=== PATIENT | female | born 1965 | race Caucasian/White ===

== ENCOUNTER 2017-03-29 16:18 | Emergency (ER) | payer OTHER ==
[~2017-03-29 16:18] MED LIST: ATEN-102 PO; DIPH50 PO; LEXA5TAB PO; LINA290C PO; METF500 PO; POLY119S PO; PRED20 PO; RANI150 PO
== END 2017-03-29 16:52 | disposition left against medical advice (07) ==
LOC: PHED 16:18
DX: M79.606 Pain in leg, unspecified (principal); Z53.21 Procedure and treatment not carried out due to patient leaving prior to being seen by health care provider
CPT/HCPCS: 99281

== ENCOUNTER 2017-08-26 07:06 | Emergency (ER) | payer OTHER ==
[~2017-08-26] VITALS: Ht 170.2 cm; Wt 160.0 kg
[2017-08-26 07:13] VITALS: BP 169/83; PULSE 83; RESP 18; TEMP 97.6; O2SAT 98
[2017-08-26] MEDS ORDERED: VALS80TA2 PO (07:21)
[2017-08-26] MEDS ORDERED: ZANT150T2 PO (07:22)
[2017-08-26] MEDS ORDERED: LEXA5TAB PO (07:22)
[2017-08-26] MEDS ORDERED: METF500T PO (07:22)
[2017-08-26] MEDS ORDERED: oxyCODONE/ACETAMINOPHEN 5 MG/325 MG TAB PO ONE (07:30)
--- NOTE | 2017-08-26 07:37 | PD ---
HPI Chief Complaint: Fall Time Seen by Provider: 07:17 Travel History International Travel<30 days: No Contact w/Intl Traveler<30days: No Traveled to known affect area: No History of Present Illness HPI Patient is a 52-year-old female presents emergency department for evaluation of left wrist pain after a trip and fall this morning. Patient states she was leaving home when she tripped over a sprinkler head and landed on outstretched left hand. She states right-hand dominant. Denies any neck injury head injury chest abdomen or pelvis pain. Patient states the pain is moderate, in the left wrist and radiates up to the left elbow. Worsens with movement and palpation. Sharp in nature. PFSH Past Medical History Asthma: No Cancer: No Cardiovascular Problems: No COPD: No Diabetes: Yes (TYPE II) Patient Takes Glucophage: Yes Diminished Hearing: No Endocrine: No Gastrointestinal Disorders: Yes (UPPER GASTRIC PAIN; ADHESIONS REMOVED; CONSTIPATION) Genitourinary: No Hepatitis: No Hiatal Hernia: No Hypertension: Yes Immune Disorder: No Musculoskeletal: No Neurologic: No Psychiatric: Yes (ANXIETY & DEPRESSION ) Reproductive: No Respiratory: Yes (SLEEP APNEA USES CPAP) Integumentary: Yes (CELLULITIS RLE) Thyroid Disease: No ?: Not Menopausal: Yes : 1 Para: 1 Ovarian Cysts: Yes Tubal Ligation: Yes Past Surgical History Abdominal Surgery: Yes (LAP CHOLECY; LAP BAND 2007; LAP ADHESION REPAIR 2014) AICD: No Body Medical Devices: LAP BAND Cardiac Surgery: No Section: Yes Cholecystectomy: Yes Ear Surgery: No Endocrine Surgery: No Eye Surgery: No Genitourinary Surgery: No Gynecologic Surgery: Yes (PARTIAL HYSTERECTOMY; C SECTION ) Hysterectomy: Yes Joint Replacement: No Oral Surgery: Yes (WISDOM TEETH EXTRACTED) Pacemaker: No Thoracic Surgery: No Tonsillectomy: Yes Other Surgery: Yes (LAP BAND) Social History Alcohol Use: No Tobacco Use: No (QUIT 2005) Substance Use: No Allergies-Medications (Allergen,Severity, Reaction): Coded Allergies: amoxicillin (Unverified Allergy, Severe, Swelling, 08/26/17) needing epi clavulanic acid (Unverified Allergy, Severe, Swelling, 08/26/17) needing epi adhesive (Unverified Allergy, Intermediate, 08/26/17) RASH AT POINT OF CONTACT; Uncoded Allergies: DIET PILLS (Allergy, Intermediate, RASH, 08/26/17) Reported Meds & Prescriptions Reported Meds & Active Scripts Active [place] (Hydrocodone-Acetaminophen) 5-325 mg Tab 1 Tab PO Q6H PRN Reported Zantac (Ranitidine HCl) 150 Mg Tab 150 Mg PO DAILY Metformin (Metformin HCl) 500 Mg Tab 500 Mg PO BIDPC Lexapro (Escitalopram Oxalate) 5 Mg Tab 5 Mg PO DAILY Valsartan-Hydrochlorothiazide 80-12.5 Mg Tab Unknown Dose PO DAILY Review of Systems Except as stated in HPI: all other systems reviewed are Neg Physical Exam Narrative GENERAL: Well-developed, obese female in no distress. SKIN: Focused skin assessment warm/dry. HEAD: Atraumatic. Normocephalic. No scott signs no raccoons eyes EYES: Pupils equal and round. No scleral icterus. No injection or drainage. ENT: No nasal bleeding or discharge. Mucous membranes pink and moist. NECK: Trachea midline. No JVD. CARDIOVASCULAR: Regular rate and rhythm. No murmur appreciated. RESPIRATORY: No accessory muscle use. Clear to auscultation. Breath sounds equal bilaterally. GASTROINTESTINAL: Abdomen soft, non-tender, nondistended. Hepatic and splenic margins not palpable. MUSCULOSKELETAL: No obvious deformities. No clubbing. No cyanosis. No edema. There is some tenderness and minimal swelling at the left distal radius, there is no tenderness at the left elbow and has full nontender range of motion however the patient does endorse some pain throughout range of motion. Pulses motor and sensory intact distally in all 4 extremities, compartments are soft. The right upper extremities atraumatic, no midline CT or L-spine tenderness to NEUROLOGICAL: Awake and alert. No obvious cranial nerve deficits. Motor grossly within normal limits. Normal speech. PSYCHIATRIC: Appropriate mood and affect; insight and judgment normal. Data Data Last Documented VS Vital Signs Date Time Temp Pulse Resp B/P (MAP) Pulse Ox O2 Delivery O2 Flow Rate FiO2 08/26/17 08:31 16 08/26/17 07:13 97.6 83 169/83 (111) 98 Orders Orders Wrist, Complete (Odz2ome) (08/26/17 ) Elbow, Complete (4 Vws) (08/26/17 ) Oxycodone-Acetamin 5-325 Mg (Percocet (08/26/17 07:30) ^ Splint (08/26/17 07:46) Splint Or Brace Apply/Monitor (08/26/17 08:09) Fiberglass Sugartong Sp Ad Arm (08/26/17 ) Fiberglass Splint Forearm Adul (08/26/17 ) Sling Cradle Arm (08/26/17 ) MDM Medical Decision Making Medical Screen Exam Complete: Yes Emergency Medical Condition: Yes Differential Diagnosis Wrist contusion, wrist fracture, elbow strain, elbow fracture. Head injury excluded by [place] CT head rules, neck injury excluded by Nexus criteria Narrative Course Patient roomed in emergency department, x-ray results as follows Last 24 hours Impressions Wrist X-Ray 08/26/17 0000 Signed Impressions: Service Date/Time: Saturday, August 26, 2017 07:23 - CONCLUSION: Suspected a slightly impacted nondisplaced fracture distal radius. Bob Swanson MD Elbow X-Ray 08/26/17 0000 Signed Impressions: Service Date/Time: Saturday, August 26, 2017 07:23 - CONCLUSION: No acute fracture. Bob Swanson MD Suspected fracture noted this is consistent with the patient's physical exam findings, will be placed in a splint and instructions to follow-up with orthopedics. Pain medicine prescribed, her ring was removed on her left ring finger. This was removed by her and she has it in her possession. Discussed signs symptoms that should prompt emergent return to the ER, she stable for discharge Diagnosis Primary Impression: Distal radius fracture, left Qualified Codes: S52.572A - Other intraarticular fracture of lower end of left radius, initial encounter for closed fracture Referrals: Daquan Garrison MD Departure Forms: Tests/Procedures, Work Release Enter return to work date: Aug 29, 2017 Med/Other Pt SpecificInfo: Prescription(s) given Scripts Hydrocodone-Acetaminophen ([place]) 5-325 mg Tab 1 TAB PO Q6H Y for PAIN, #20 TAB 0 Refills Prov: Alexander Arguello MD 08/26/17 Disposition: 01 DISCHARGE HOME Condition: Stable Alexander Arguello MD Aug 26, 2017 07:37
--- NOTE | 2017-08-26 07:42 | RADRPT ---
EXAM DATE/TIME: 08/26/2017 07:23 [facility] COMPARISON: No previous studies available for comparison. INDICATIONS : Left wrist pain post fall. MEDICAL HISTORY : None. SURGICAL HISTORY : None. ENCOUNTER: Initial ACUITY: 1 day PAIN SCORE: 9/10 LOCATION: Left wrisst FINDINGS: Three view examination of the left wrist demonstrates soft tissue swelling. Minimal sclerosis distal radius suggests slightly impacted nondisplaced fracture. No dislocation. Ulna intact. Bony mineraliz ation is normal. CONCLUSION: Suspected a slightly impacted nondisplaced fracture distal radius. Bob Swanson MD on August 26, 2017 at 7:38 Board Certified Radiologist. This report was verified electronically.
--- NOTE | 2017-08-26 07:43 | RADRPT ---
EXAM DATE/TIME: 08/26/2017 07:23 [facility] COMPARISON: No previous studies available for comparison. INDICATIONS : Left elbow pain post fall MEDICAL HISTORY : None. SURGICAL HISTORY : None. ENCOUNTER: Initial ACUITY: 1 day PAIN SCORE: 9/10 LOCATION: Left elbow FINDINGS: Multiple view examination of the left elbow demonstrates no soft tissue swelling, joint effusion, or fracture. The osseous structures are in normal alignment. Bony mineralization is normal. CONCLUSION: No acute fracture. Bob Swanson MD on August 26, 2017 at 7:41 Board Certified Radiologist. This report was verified electronically.
[2017-08-26] MEDS ORDERED: NORC5TAB PO (07:47)
[2017-08-26 08:31] VITALS: RESP 16
== END 2017-08-26 08:50 | disposition home or self-care (01) ==
LOC: PHED 07:06
DX: S52.572A Other intraarticular fracture of lower end of left radius, initial encounter for closed fracture (principal); W01.0XXA Fall on same level from slipping, tripping and stumbling without subsequent striking against object, initial encounter; Z87.891 Personal history of nicotine dependence
CPT/HCPCS: 29125; 73080; 73110

== ENCOUNTER 2017-12-14 17:02 | Observation (INO) | payer OTHER ==
[2017-12-14] VITALS (7 sets, daily range): BP systolic 112–170; BP diastolic 56–97; PULSE 60–72; RESP 16–20; TEMP 96–97.7; O2SAT 95–98
[~2017-12-14] VITALS: Ht 170.2 cm; Wt 161.3 kg
[~2017-12-14 17:02] MED LIST changes: -ATEN-102 PO; -DIPH50 PO; -LINA290C PO; -METF500 PO; +METF500T PO; +NORC5TAB PO; -POLY119S PO; -PRED20 PO; -RANI150 PO; +VALS80TA2 PO; +ZANT150T2 PO
--- NOTE | 2017-12-14 17:28 | PD ---
HPI Chief Complaint: Chest pain Time Seen by Provider: 17:11 Travel History International Travel<30 days: No Contact w/Intl Traveler<30days: No Traveled to known affect area: No History of Present Illness HPI 52yo F with PMH of DM, HTN, morbid obesity presents to the ED with c/o left sided chest pain since yesterday. Pt said it is pressure like, nonradiating and constant. No exacerbating or alleviating factors. Also felt a little sob today. Pt was not feeling well 3 days ago and went to urgent care. They diagnosed here with pneumonia base on physical exam and started her on doxycycline. Pt said she has a little cough but not much and no fever. Denies any nausea, vomiting, abdominal pain, focal weakness or numbness. She had a stress test many years ago but has no warp changer and no recent work up. Said she was a former cig smoker. PFSH Past Medical History Asthma: No Cancer: No Cardiovascular Problems: No COPD: No Diabetes: Yes (TYPE II) Diminished Hearing: No Endocrine: No Gastrointestinal Disorders: Yes (UPPER GASTRIC PAIN; ADHESIONS REMOVED; CONSTIPATION) Genitourinary: No Hepatitis: No Hiatal Hernia: No Hypertension: Yes Immune Disorder: No Musculoskeletal: No Neurologic: No Psychiatric: Yes (ANXIETY & DEPRESSION ) Reproductive: No Respiratory: Yes (SLEEP APNEA USES CPAP) Integumentary: Yes (CELLULITIS RLE) Thyroid Disease: No Menopausal: Yes : 1 Para: 1 Ovarian Cysts: Yes Tubal Ligation: Yes Past Surgical History Abdominal Surgery: Yes (LAP CHOLECY; LAP BAND 2007; LAP ADHESION REPAIR 2014) AICD: No Body Medical Devices: LAP BAND Cardiac Surgery: No Section: Yes Cholecystectomy: Yes Ear Surgery: No Endocrine Surgery: No Eye Surgery: No Genitourinary Surgery: No Gynecologic Surgery: Yes (PARTIAL HYSTERECTOMY; C SECTION ) Hysterectomy: Yes Joint Replacement: No Oral Surgery: Yes (WISDOM TEETH EXTRACTED) Pacemaker: No Thoracic Surgery: No Tonsillectomy: Yes Other Surgery: Yes (LAP BAND) Social History Alcohol Use: No Tobacco Use: No (QUIT 2005) Substance Use: No Allergies-Medications (Allergen,Severity, Reaction): Coded Allergies: amoxicillin (Unverified Allergy, Severe, Swelling, 12/14/17) needing epi clavulanic acid (Unverified Allergy, Severe, Swelling, 12/14/17) needing epi adhesive (Unverified Allergy, Intermediate, 12/14/17) RASH AT POINT OF CONTACT; Penicillins (Verified Allergy, Unknown, 12/14/17) Uncoded Allergies: DIET PILLS (Allergy, Intermediate, RASH, 08/26/17) Reported Meds & Prescriptions Reported Meds & Active Scripts Active Reported Estradiol 0.05 Mg/24 Hour Patch.tdsw Medroxyprogesterone Acetate 2.5 Mg Tablet Lasix (Furosemide) 20 Mg Tab 20 Mg PO DAILY Hydrochlorothiazide 25 Mg Tab 25 Mg PO DAILY K-Tab (Potassium Chloride) 10 Meq Tab 10 Meq PO DAILY Tanzeum 4-Pack Inj (Albiglutide) 50 Mg Pfpen 50 Mg SQ Q7D Lexapro (Escitalopram Oxalate) 5 Mg Tab 20 Mg PO HS Valsartan-Hydrochlorothiazide 80-12.5 Mg Tab 160 PO DAILY Review of Systems Except as stated in HPI: all other systems reviewed are Neg Physical Exam Narrative GENERAL: 52yo F in mild distress. SKIN: Focused skin assessment warm/dry. HEAD: Atraumatic. Normocephalic. EYES: Pupils equal and round. No scleral icterus. No injection or drainage. ENT: No nasal bleeding or discharge. Mucous membranes pink and moist. NECK: Trachea midline. No JVD. CARDIOVASCULAR: Regular rate and rhythm. No murmur appreciated. RESPIRATORY: No accessory muscle use. Clear to auscultation. Breath sounds equal bilaterally. GASTROINTESTINAL: Abdomen soft, non-tender, nondistended. MUSCULOSKELETAL: No obvious deformities. No clubbing. No cyanosis. No edema. NEUROLOGICAL: Awake and alert. No obvious cranial nerve deficits. Motor grossly within normal limits. Normal speech. PSYCHIATRIC: Appropriate mood and affect; insight and judgment normal. Data Data Last Documented VS Vital Signs Date Time Temp Pulse Resp B/P (MAP) Pulse Ox O2 Delivery O2 Flow Rate FiO2 12/14/17 18:37 72 20 122/56 (78) 95 Room Air 12/14/17 17:08 97.7 Orders Orders Electrocardiogram (12/14/17 17:23) Basic Metabolic Panel (Bmp) (12/14/17 17:23) B-Type Natriuretic Peptide (12/14/17 17:23) Complete Blood Count With Diff (12/14/17 17:23) Magnesium (Mg) (12/14/17 17:23) Prothrombin Time / Inr (Pt) (12/14/17 17:23) Act Partial Throm Time (Ptt) (12/14/17 17:23) Troponin I (12/14/17 17:23) Chest, Single Ap (12/14/17 17:23) Aspirin (Aspirin) (12/14/17 17:30) Guaifen-Cod 200-20 Mg/10ml Liq (Robituss (12/14/17 18:30) Nitroglycerin Sl (Nitrostat Sl) (12/14/17 18:30) Admit Order (Ed Use Only) (12/14/17 18:37) Labs Laboratory Tests Test 12/14/17 17:38 White Blood Count 7.6 TH/MM3 Red Blood Count 4.54 MIL/MM3 Hemoglobin 13.0 GM/DL Hematocrit 38.0 % Mean Corpuscular Volume 83.6 FL Mean Corpuscular Hemoglobin 28.6 PG Mean Corpuscular Hemoglobin Concent 34.2 % Red Cell Distribution Width 13.2 % Platelet Count 217 TH/MM3 Mean Platelet Volume 8.1 FL Neutrophils (%) (Auto) 68.7 % Lymphocytes (%) (Auto) 23.1 % Monocytes (%) (Auto) 5.1 % Eosinophils (%) (Auto) 2.7 % Basophils (%) (Auto) 0.4 % Neutrophils # (Auto) 5.2 TH/MM3 Lymphocytes # (Auto) 1.7 TH/MM3 Monocytes # (Auto) 0.4 TH/MM3 Eosinophils # (Auto) 0.2 TH/MM3 Basophils # (Auto) 0.0 TH/MM3 CBC Comment DIFF FINAL Differential Comment Prothrombin Time 10.4 SEC Prothromb Time International Ratio 1.0 RATIO Activated Partial Thromboplast Time 26.1 SEC Blood Urea Nitrogen 10 MG/DL Creatinine 0.65 MG/DL Random Glucose 166 MG/DL Calcium Level 8.4 MG/DL Magnesium Level 2.1 MG/DL Sodium Level 139 MEQ/L Potassium Level 3.8 MEQ/L Chloride Level 105 MEQ/L Carbon Dioxide Level 28.6 MEQ/L Anion Gap 5 MEQ/L Estimat Glomerular Filtration Rate 96 ML/MIN Troponin I LESS THAN 0.02 NG/ML B-Type Natriuretic Peptide 28 PG/ML MDM Medical Decision Making Medical Screen Exam Complete: Yes Emergency Medical Condition: Yes Interpretation(s) EKG: NSR 60bpm. LAD. No ST segment elevation or depression. Differential Diagnosis ACS vs. pneumonia vs. influenza vs. bronchitis vs. GERD Narrative Course 52yo F with URI like symptom. Pt had negative influenza and strep at urgent care. Labs reviewed, no leukocytosis. Troponin negative. BNP normal. CXR negative. Pt given aspirin and sublingual nitro. I am concern about the chest pain since pt has multiple cardiac risk factors. Discussed with Dr. Barnard and accepted to his service for chest pain center. Diagnosis Primary Impression: Chest pain Qualified Codes: R07.9 - Chest pain, unspecified Admitting Information Admitting Physician Requests: Observation Corinne Dean DO Dec 14, 2017 17:28
[2017-12-14] MEDS ORDERED: ASPIRIN 325 MG TAB PO ONE (17:30)
[2017-12-14 17:41] LABS: AUTOMATED NEUTROPHIL # 5.2 TH/MM3 (1.8-7.7); BASOPHIL % 0.4 % (0.0-2.0); EOSINOPHIL # 0.2 TH/MM3 (0-0.4); EOSINOPHIL % 2.7 % (0.0-4.0); LYMPH % 23.1 % (9.0-44.0); LYMPHOCYTE # 1.7 TH/MM3 (1.0-4.8); MEAN CELL VOLUME 83.6 FL (80.0-100.0); MEAN CORPUSCULAR HEMOGLOBIN 28.6 PG (27.0-34.0); MEAN CORPUSCULAR HGB CONC 34.2 % (32.0-36.0); MEAN PLATELET VOLUME 8.1 FL (7.0-11.0); MONO % 5.1 % (0.0-8.0); MONOCYTE # 0.4 TH/MM3 (0-0.9); NEUT % 68.7 % (16.0-70.0); PLATELET COUNT 217 TH/MM3 (150-450); RED BLOOD COUNT 4.54 MIL/MM3 (4.00-5.30); RED CELL DISTRIBUTION WIDTH 13.2 % (11.6-17.2); WHITE BLOOD COUNT 7.6 TH/MM3 (4.0-11.0)
[2017-12-14 17:49] LABS: CHLORIDE 105 MEQ/L (98-107); SODIUM (NA) 139 MEQ/L (136-145)
[2017-12-14 17:51] LABS: CALCIUM 8.4 MG/DL (8.5-10.1)
[2017-12-14 17:52] LABS: BICARBONATE 28.6 MEQ/L (21.0-32.0); BLOOD UREA NITROGEN 10 MG/DL (7-18); GLUCOSE,RANDOM 166 MG/DL (74-106); MAGNESIUM 2.1 MG/DL (1.5-2.5)
[2017-12-14 17:55] LABS: CREATININE 0.65 MG/DL (0.50-1.00); GLOMERULAR FILTRATION RATE 96 ML/MIN (>89); PROTHROMBIN TIME - PATIENT 10.4 SEC (9.8-11.6)
[2017-12-14 18:00] LABS: TROPONIN I LESS THAN 0.02 NG/ML (0.02-0.05)
--- NOTE | 2017-12-14 18:09 | RADRPT ---
EXAM DATE/TIME: 12/14/2017 17:55 [facility] COMPARISON: No previous studies available for comparison. INDICATIONS : Short of breath, cough, chest heaviness MEDICAL HISTORY : None. SURGICAL HISTORY : None. ENCOUNTER: Initial ACUITY: 4 - 6 days PAIN SCORE: 6/10 LOCATION: Bilateral chest FINDINGS: A single view of the chest demonstrates the lungs to be symmetrically aerated without evidence of mas s, infiltrate or effusion. The cardiomediastinal contours are unremarkable. Osseous structures are intact. CONCLUSION: No evidence of acute cardiopulmonary disease. Ten Sosa MD on December 14, 2017 at 18:07 Board Certified Radiologist. This report was verified electronically.
[2017-12-14] MEDS ORDERED: K-TA10TA PO (18:16)
[2017-12-14] MEDS ORDERED: MEDR2.5T4 (18:16)
[2017-12-14] MEDS ORDERED: HYDR25TA5 PO (18:16)
[2017-12-14] MEDS ORDERED: ALBI1INJ2 SQ (18:16)
[2017-12-14] MEDS ORDERED: FURO1TAB62 PO (18:16)
[2017-12-14] MEDS ORDERED: ESTR1PAT9 (18:16)
[2017-12-14] MEDS ORDERED: NITROGLYCERIN 0.4 MG SL 25 TABS/BTL SL ONE (18:30)
[2017-12-14] MEDS ORDERED: guaiFENesin/CODEINE SYRUP 200 MG/20 MG/10 ML CUP PO ONE (18:30)
[2017-12-14] MEDS ORDERED: ONDANSETRON HCL 4 MG/2 ML VIAL IV PUSH PRN (19:00)
[2017-12-14] MEDS ORDERED: SODIUM CHLORIDE 0.9% FLUSH 10 ML FLUSH IV FLUSH PRN (19:00)
[2017-12-14] MEDS ORDERED: ESCITALOPRAM OXALATE 20 MG TAB PO SCH (21:00)
[2017-12-14 21:16] LABS: TROPONIN I LESS THAN 0.02 NG/ML (0.02-0.05)
[2017-12-14] MEDS: SODIUM CHLORIDE 0.9% FLUSH 10 ML FLUSH IV FLUSH SCH (23:05)
[2017-12-15] VITALS (8 sets, daily range): BP systolic 133–157; BP diastolic 56–112; PULSE 56–79; RESP 16–18; TEMP 95.7–98; O2SAT 94–98
[2017-12-15 00:08] LABS: TROPONIN I LESS THAN 0.02 NG/ML (0.02-0.05)
[2017-12-15] MEDS ORDERED: PNEUMOCOCCAL POLYVALENT INJ 25 MCG/0.5 ML SYR IM ONE (09:00)
[2017-12-15] MEDS ORDERED: POTASSIUM CHLORIDE 10 MEQ CONTROLLED RELEASE TAB PO SCH (09:00)
[2017-12-15] MEDS ORDERED: FUROSEMIDE 20 MG TAB PO SCH (09:00)
[2017-12-15] MEDS ORDERED: HYDROCHLOROTHIAZIDE 25 MG TAB PO SCH (09:00)
--- NOTE | 2017-12-15 09:06 | HHI.HP ---
HPI Service [facility] Primary Care Physician Twila Irving, DO Admission Diagnosis Chest pain Diagnoses: (1) Chest pain Chief Complaint: Chest pain Travel History International Travel<30 Days: No Contact w/Intl Traveler <30 Da: No Traveled to Known Affected Are: No History of Present Illness Written by Teressa Donohue, acting as scribe for Dr. Fajardo on 12/15/17 at 09:06. This is a pleasant 52-year-old female patient with a known medical history of type 2 diabetes, hypertension and obesity who presented to the ED with complaints of chest pain. Patient states that the chest pain started yesterday while at rest in her midsternal chest, characterizes pain as heavy and burning in nature and constant, denies any radiation of pain. Denies any associated nausea, vomiting, diaphoresis. Does admit to associated shortness of breath. Patient states she was evaluated at the urgent care a few days ago, diagnosed with pneumonia and placed on doxycycline. Patient does admit to nonproductive cough, denies any recent fever or chills. Patient does admit to a previous stress test in 2000, which was reportedly negative. Does not follow with a director of slot operations. Denies any current tobacco use. Review of Systems Constitutional: DENIES: Fever, Chills Respiratory: COMPLAINS OF: Cough, Shortness of breath, DENIES: Sputum production Cardiovascular: COMPLAINS OF: Chest pain, Palpitations Gastrointestinal: DENIES: Abdominal pain, Black stools, Bloody stools, Constipation, Diarrhea, Nausea, Vomiting Musculoskeletal: DENIES: Joint pain Hematologic/lymphatic: DENIES: Bruising Immunologic/allergic: DENIES: Eczema Neurologic: DENIES: Abnormal gait Psychiatric: COMPLAINS OF: Anxiety Except as stated in HPI: all other systems reviewed are Neg Past Family Social History Past Medical History Type 2 diabetes Hypertension Anxiety Depression Obesity with history of lap band Sleep apnea Past Surgical History Cholecystectomy Partial hysterectomy LAP-BAND 2007 Reported Medications Active Reported Estradiol 0.05 Mg/24 Hour Patch.tdsw Medroxyprogesterone Acetate 2.5 Mg Tablet Lasix (Furosemide) 20 Mg Tab 20 Mg PO DAILY Hydrochlorothiazide 25 Mg Tab 25 Mg PO DAILY K-Tab (Potassium Chloride) 10 Meq Tab 10 Meq PO DAILY Tanzeum 4-Pack Inj (Albiglutide) 50 Mg Pfpen 50 Mg SQ Q7D Lexapro (Escitalopram Oxalate) 5 Mg Tab 20 Mg PO HS Valsartan-Hydrochlorothiazide 80-12.5 Mg Tab 160 PO DAILY Allergies: Coded Allergies: amoxicillin (Unverified Allergy, Severe, Swelling, 12/14/17) needing epi clavulanic acid (Unverified Allergy, Severe, Swelling, 12/14/17) needing epi adhesive (Unverified Allergy, Intermediate, 12/14/17) RASH AT POINT OF CONTACT; Penicillins (Verified Allergy, Unknown, 12/14/17) Uncoded Allergies: DIET PILLS (Allergy, Intermediate, RASH, 08/26/17) Active Ordered Medications Current Medications Medications (Trade) Dose Ordered Sig/Rudy Route Start Time Stop Time Status Last Admin (NS Flush) 2 ml UNSCH PRN IV FLUSH 12/14/17 19:00 (NS Flush) 2 ml BID IV FLUSH 12/14/17 21:00 12/15/17 09:12 (Tylenol) 500 mg Q4H PRN PO 12/14/17 19:00 12/15/17 09:13 (Zofran Inj) 4 mg Q6H PRN IV PUSH 12/14/17 19:00 (Lexapro) 20 mg HS PO 12/14/17 21:00 12/14/17 23:05 (Lasix) 20 mg DAILY PO 12/15/17 09:00 12/15/17 09:14 (Hydrodiuril) 25 mg DAILY PO 12/15/17 09:00 12/15/17 09:13 (KCl) 10 meq DAILY PO 12/15/17 09:00 12/15/17 09:14 Family History Paternal medical history significant for breast cancer. Paternal medical history significant for COPD, CHF and diabetes. Social History Denies any current tobacco use. States she quit smoking over 10 years ago. Admits to social alcohol use. Denies any illicit drug use. Physical Exam Vital Signs Vital Signs Date Time Temp Pulse Resp B/P (MAP) Pulse Ox O2 Delivery O2 Flow Rate FiO2 12/15/17 04:00 96.4 72 16 151/91 (111) 96 1/28/18 00:00 95.7 56 16 134/90 (105) 97 12/14/17 23:17 60 20 12/14/17 22:45 96 21 12/14/17 22:00 65 12/14/17 21:30 96.0 64 16 146/96 (113) 98 12/14/17 21:05 60 20 135/70 (91) 97 12/14/17 19:30 97.4 60 18 112/69 (83) 96 Room Air 12/14/17 19:30 60 96 Room Air 12/14/17 18:37 72 20 122/56 (78) 95 Room Air 12/14/17 17:08 97.7 71 20 170/97 (121) 96 Physical Exam GENERAL: Well-nourished, well-developed obese patient in NAD. SKIN: Warm and dry. No rash. HEAD: Normocephalic. Atraumatic. EYES: Pupils equal and round. No scleral icterus. No injection or drainage. ENT: No nasal bleeding or discharge. Mucous membranes pink and moist. NECK: Supple. Trachea midline. CARDIOVASCULAR: Regular rate and rhythm. S1, S2 noted. No murmur appreciated. No reproducible chest pain. RESPIRATORY: No accessory muscle use. Clear to auscultation. Breath sounds equal bilaterally. GASTROINTESTINAL: Abdomen soft, non-tender, nondistended. Normoactive bowel sounds x4. MUSCULOSKELETAL: No obvious deformities. Extremities without clubbing, cyanosis , or edema. NEUROLOGICAL: Awake and alert. No obvious cranial nerve deficits. Motor grossly within normal limits. 5/5 muscle strength in bilateral upper and lower extremities. Normal speech. PSYCHIATRIC: Appropriate mood and affect; insight and judgment normal. Laboratory Laboratory Tests Test 12/14/17 17:38 12/14/17 20:45 12/14/17 23:22 White Blood Count 7.6 Red Blood Count 4.54 Hemoglobin 13.0 Hematocrit 38.0 Mean Corpuscular Volume 83.6 Mean Corpuscular Hemoglobin 28.6 Mean Corpuscular Hemoglobin Concent 34.2 Red Cell Distribution Width 13.2 Platelet Count 217 Mean Platelet Volume 8.1 Neutrophils (%) (Auto) 68.7 Lymphocytes (%) (Auto) 23.1 Monocytes (%) (Auto) 5.1 Eosinophils (%) (Auto) 2.7 Basophils (%) (Auto) 0.4 Neutrophils # (Auto) 5.2 Lymphocytes # (Auto) 1.7 Monocytes # (Auto) 0.4 Eosinophils # (Auto) 0.2 Basophils # (Auto) 0.0 CBC Comment DIFF FINAL Differential Comment Prothrombin Time 10.4 Prothromb Time International Ratio 1.0 Activated Partial Thromboplast Time 26.1 Blood Urea Nitrogen 10 Creatinine 0.65 Random Glucose 166 Calcium Level 8.4 Magnesium Level 2.1 Sodium Level 139 Potassium Level 3.8 Chloride Level 105 Carbon Dioxide Level 28.6 Anion Gap 5 Estimat Glomerular Filtration Rate 96 Troponin I LESS THAN 0.02 LESS THAN 0.02 LESS THAN 0.02 B-Type Natriuretic Peptide 28 Total Creatine Kinase 90 92 Result Diagram: 12/14/178 12/14/17 173 Imaging Last Impressions Chest X-Ray 12/14/171722 Signed Impressions: Service Date/Time: Thursday, December 14, 2017 17:55 - CONCLUSION: No evidence of acute cardiopulmonary disease. Ten Sosa MD Septic Shock Reassessment Septic shock perfusion: reassessment completed Caprini VTE Risk Assessment Caprini VTE Risk Assessment: No/Low Risk (score <= 1) Caprini Risk Assessment Model Point Value = 1 Point Value = 2 Point Value = 3 Point Value = 5 Age 41-60 Minor surgery BMI > 25 kg/m2 Swollen legs Varicose veins or History of unexplained or recurrent spontaneous Oral contraceptives or hormone replacement Sepsis (< 1 month) Serious lung disease, including pneumonia (< 1 month) Abnormal pulmonary function Acute myocardial infarction Congestive heart failure (< 1 month) History of inflammatory bowel disease Medical patient at bed rest Age 61-74 Arthroscopic surgery Major open surgery (> 45 min) Laparoscopic surgery (> 45 min) Malignancy Confined to bed (> 72 hours) Immobilizing plaster cast Central venous access Age >= 75 History of VTE Family history of VTE Factor V Leiden Prothrombin [id number] Lupus anticoagulant Anticardiolipin antibodies Elevated serum homocysteine Heparin-induced thrombocytopenia Other congenital or acquired thrombophilia Stroke (< 1 month) Elective arthroplasty Hip, pelvis, or leg fracture Acute spinal cord injury (< 1 month) Prophylaxis Regimen Total Risk Factor Score Risk Level Prophylaxis Regimen 0-1 Low Early ambulation 2 Moderate Order ONE of the following: *Sequential Compression Device (SCD) *Heparin 5000 units SQ BID 3-4 Higher Order ONE of the following medications: *Heparin 5000 units SQ TID *Enoxaparin/Lovenox 40 mg SQ daily (WT < 150 kg, CrCl > 30 mL/min) *Enoxaparin/Lovenox 30 mg SQ daily (WT < 150 kg, CrCl > 10-29 mL/min) *Enoxaparin/Lovenox 30 mg SQ BID (WT < 150 kg, CrCl > 30 mL/min) AND/OR *Sequential Compression Device (SCD) 5 or more Highest Order ONE of the following medications: *Heparin 5000 units SQ TID (Preferred with Epidurals) *Enoxaparin/Lovenox 40 mg SQ daily (WT < 150 kg, CrCl > 30 mL/min) *Enoxaparin/Lovenox 30 mg SQ daily (WT < 150 kg, CrCl > 10-29 mL/min) *Enoxaparin/Lovenox 30 mg SQ BID (WT < 150 kg, CrCl > 30 mL/min) AND *Sequential Compression Device (SCD) Assessment and Plan Problem List: (1) Chest pain ICD Code: R07.9 - Chest pain, unspecified Status: Acute Assessment and Plan This is a pleasant 52-year-old female patient with a known medical history of type 2 diabetes, hypertension and obesity who presented to the ED with complaints of chest pain. Chest pain Patient has been admitted to the chest pain center for observation. Serial EKGs and serial troponins have been ordered for ruling out ACS purposes. Serial troponins are flat. EKG reviewed showing sinus bradycardia, no arrhythmias, no ST changes to indicate ischemia. CBC and BMP reviewed, essentially unremarkable. Chest x-ray reviewed showing no evidence of acute cardiopulmonary disease. Chest pain has not resolved. Lying in bed comfortably on room air. Patient has multiple risk factors for cardiac disease including diabetes, obesity, family history and previous tobacco use. Patient will undergo a cardiac nuclear stress test to further rule out any ischemia. Further disposition treatment plan will depend on nuclear results. Continue to follow. Supportive care. Patient is stable at this time and agreeable to the pain. Hypertension, chronic: Continue home medications. BP mildly elevated. Monitor BP trends. Depression, chronic: Continue home medications. Obesity: Counseled extensively about importance of losing weight and risk of cardiac disease. DVT prophylaxis: SCDs. This note was transcribed by umer Donohue. I, Dr. Bob Fajardo personally performed the history, physical exam, and medical decision making; and confirmed the accuracy of the information in the transcribed note. Authenticated by Dr. Bob Fajardo on 12/15/17 at 09:06. Patient underwent cardiac nuclear stress test which showed focal stress-induced ischemia and hypokinesis at the apex. Spoke to on-call director of slot operations for [facility], Dr. atkinson, who was updated about patient status and stress test results and recommended long-acting nitrate and follow-up in the outpatient setting in his office. Discussed with patient and . Chest pain has not resolved. All symptoms have improved. Patient is agreeable to following up with Dr. atkinson in the outpatient setting for further monitoring of her heart. Patient is encouraged to return to the ED symptoms worsen or continue. Code Status Full code Discussed Condition With Patient, , sister Problem Qualifiers (1) Chest pain: Qualified Codes: R07.9 - Chest pain, unspecified Teressa Donohue Dec 15, 2017 09:06 Bob Fajardo MD Dec 15, 2017 09:06
[2017-12-15] MEDS: SODIUM CHLORIDE 0.9% FLUSH 10 ML FLUSH IV FLUSH SCH (09:12)
[2017-12-15] MEDS: ACETAMINOPHEN 500 MG CPLT PO PRN ×2 (09:13→17:34)
--- NOTE | 2017-12-15 12:14 | EKG ---
Date Performed: 12/14/2017 Time Performed: 17:33:15 PTAGE: 52 years EKG: Sinus rhythm NORMAL ECG PREVIOUS TRACING : 10/01/2015 10.16 Since the prior tracing, there has been no significant mishra DOCTOR: Andres Adams Interpretating Date/Time 12/15/2017 12:13:02
--- NOTE | 2017-12-15 12:14 | EKG ---
Date Performed: 12/14/2017 Time Performed: 21:45:26 PTAGE: 52 years EKG: Sinus rhythm NORMAL ECG PREVIOUS TRACING : 12/14/2017 17.33 Since the prior tracing, there has been no significant mishra DOCTOR: Andres Adams Interpretating Date/Time 12/15/2017 12:13:13
--- NOTE | 2017-12-15 12:15 | EKG ---
Date Performed: 12/14/2017 Time Performed: 22:36:47 PTAGE: 52 years EKG: SINUS BRADYCARDIA WITH SINUS ARRHYTHMIA BORDERLINE ECG PREVIOUS TRACING : 12/14/2017 21.45 Since the prior tracing, there has been no significant mishra DOCTOR: Andres Adams Interpretating Date/Time 12/15/2017 12:13:25
[2017-12-15] MEDS ORDERED: DEXTROSE 50% IN WATER 50 ML VIAL(D50) IV PUSH PRN (13:45)
[2017-12-15] MEDS ORDERED: GLUCAGON 1 MG/ML VIAL OTHER PRN (13:45)
[2017-12-15] MEDS ORDERED: REGADENOSON INJ 0.4 MG/5 ML SYR IV ONE (15:47)
--- NOTE | 2017-12-15 17:00 | RADRPT ---
EXAM DATE/TIME: 12/15/2017 15:40 [facility] COMPARISON: No previous studies available for comparison. INDICATIONS : Left chest pain with dyspnea. Angina. DOSE: 35 mCi Tc99m Myoview at stress. 11 mCi Tc99m Myoview at rest. 0.4 mg Lexiscan STRESS SYMPTOMS: Dyspnea, headache and nausea. EJECTION FRACTION: 58% MEDICAL HISTORY : Diabetes mellitus type 2. Hypertension. SURGICAL HISTORY : Hysterectomy. Tonsillectomy. Cholecystectomy. ENCOUNTER: Initial ACUITY: 2 days PAIN SCALE: 8/10 LOCATION: Left chest TECHNIQUE: The patient underwent pharmacologic stress with infusion of prescribed dose. Continuous ECG tracing was monitored during stress. Gated SPECT imaging was performed after stress and conventional SPECT i maging was performed at rest. The examination was performed on a SPECT/CT scanner, both attenuation and non-corrected datasets were reviewed. FINDINGS: DISTRIBUTION: The maximum perfused segment at stress is in the lateral wall. PERFUSION STUDY: Very small area of mild to moderate stress-induced ischemia seen at the apex. There is normal perfusi on elsewhere. GATED STUDY: Mild hypokinetic area of the apex. Normal wall motion otherwise. Left ventricular ejection fraction i s 58%. CONCLUSION: Focal stress-induced ischemia and hypokinesia of the apex. RISK CATEGORY: Intermediate Ten Sosa MD on December 15, 2017 at 16:56 Board Certified Radiologist. This report was verified electronically.
[2017-12-15] MEDS ORDERED: ISOSORBIDE MONONITRATE 30 MG TAB PO ONE (17:15)
--- NOTE | 2017-12-15 17:21 | HHI.DCPOC ---
Discharge Care Plan Diagnosis: (1) Chest pain (2) Hypertension Goals to Promote Your Health * To prevent worsening of your condition and complications * To maintain your health at the optimal level Directions to Meet Your Goals Take your medications as prescribed Follow your dietary instruction Follow activity as directed Keep your appointments as scheduled Take your immunizations and boosters as scheduled If your symptoms worsen call your PCP, if no PCP go to Urgent Care Center or Emergency Room Smoking is Dangerous to Your Health. Avoid second hand smoke Call the 24-hour hour crisis hotline for domestic abuse at Teressa Donohue Dec 15, 2017 17:21
[2017-12-15] MEDS ORDERED: ISOS30TA3 PO (17:25)
--- NOTE | 2017-12-15 18:10 | HHI.PR ---
Addendum to Inpatient Note Addendum Reason: Additional Documentation Additional Information Last Impressions Myocardial Perfusion Scan Nuc Med 12/15/17 0000 Signed Impressions: Service Date/Time: Friday, December 15, 2017 15:40 - CONCLUSION: Focal stress-induced ischemia and hypokinesia of the apex. RISK CATEGORY: Intermediate Ten Sosa MD Chest X-Ray 12/14/17 1723 Signed Impressions: Service Date/Time: Thursday, December 14, 2017 17:55 - CONCLUSION: No evidence of acute cardiopulmonary disease. Ten Sosa MD Cardiology pure pak machine operator recommended Imdur as well as Follow up outpatient, therefore patient will be discharged home Discharge patient to home Condition on discharge: Improved Regular Diet as tolerated Ad Sheridan activity Rx written:see EMR Follow-up with primary care physician in 1 week Cardiology within 1 week Bob Fajardo MD Dec 15, 2017 18:10
--- NOTE | 2017-12-16 13:01 | TR ---
Date Performed: 12/15/2017 Time Performed: 16:07:56 DOCTOR: Jarrod Blas DRUG LIST: CLINICAL HISTORY: REASON FOR TEST: Chest pain REASON FOR ENDING: OBSERVATION: CONCLUSION: Lexiscan stress test was performed under standard four minute protocol. Radionuclid e was injected one minute prior to ending the test. No electrocardiographic abormalities were present to suggest ischemia. Lateral T wave changes were present throughout testing. Nuclear imaging and int erpretation are pending. COMMENTS:
== END 2017-12-15 18:20 | disposition home or self-care (01) ==
LOC: PHED 17:02 → PHEDA 18:38 → PH3B 21:23
PROVIDERS: ADMIT Hospitalist; ATTEND Hospitalist
DX: R07.89 Other chest pain (principal); I10 Essential (primary) hypertension; E11.9 Type 2 diabetes mellitus without complications; E66.9 Obesity, unspecified; F32.9 Major depressive disorder, single episode, unspecified; G47.30 Sleep apnea, unspecified; R94.31 Abnormal electrocardiogram [ECG] [EKG]; Z87.891 Personal history of nicotine dependence; Z98.84 Bariatric surgery status; Z90.710 Acquired absence of both cervix and uterus; Z68.43 Body mass index [BMI] 50.0-59.9, adult; Z79.84 Long term (current) use of oral hypoglycemic drugs; Z23 Encounter for immunization
CPT/HCPCS: 71045; 78452; 80048; 82550; 82948; 83735; 83880; 84484; 85025; 85610; 85730; 90732; 93005; 93017; 99285; A9502; G0378; J2785